=== PATIENT | female | born 1975 | race Caucasian/White ===

== ENCOUNTER 2019-07-22 11:13 | Emergency (ER) | payer OTHER ==
[~2019-07-22] VITALS: Ht 162.6 cm; Wt 81.6 kg
[2019-07-22 11:19] VITALS: BP 120/89; Ht 162.6 cm; Wt 81.6 kg
== END 2019-07-22 14:13 | disposition home or self-care (01) ==
LOC: EDBD 11:13 → ED 11:13
DX: S13.4XXA Sprain of ligaments of cervical spine, initial encounter (principal); M79.7 Fibromyalgia; F17.210 Nicotine dependence, cigarettes, uncomplicated; F11.20 Opioid dependence, uncomplicated; R51 Headache; M54.9 Dorsalgia, unspecified; Z98.890 Other specified postprocedural states; V43.52XA Car driver injured in collision with other type car in traffic accident, initial encounter; Y93.I9 Activity, other involving external motion; Y92.488 Other paved roadways as the place of occurrence of the external cause; Y99.8 Other external cause status
CPT/HCPCS: 99406